=== PATIENT | male | born 1955 | race Asian ===

== ENCOUNTER 2021-05-12 17:00 | Emergency (ER) | payer OTHER ==
[~2021-05-12] VITALS: Ht 175.3 cm; Wt 90.3 kg
[2021-05-12 18:40] VITALS: BP 159/100; TEMP 98.2
== END 2021-05-12 18:40 | disposition home or self-care (01) ==
LOC: ED 17:00
DX: H10.89 Other conjunctivitis (principal)
CPT/HCPCS: 99283